=== PATIENT | female | born 1975 | race American Indian/Alaskan Native ===

== ENCOUNTER 2018-02-27 12:44 | Outpatient (CLI) | payer OTHER | END 2018-02-27 12:45 | disposition home or self-care (01) | LOC: C.EKG 12:44 → C.PAT 12:45 ==

== ENCOUNTER 2018-02-28 06:19 | Day surgery (SDC) | payer OTHER ==
[2018-02-27 08:13] VITALS: BMI 32.5
[2018-02-28] MEDS ORDERED: Midazolam 2 MG/2 ML VIAL ONE (09:23)
[2018-02-28] MEDS ORDERED: Propofol 10 mg/ml Inj (20 ML) ONE (09:24)
[2018-02-28] MEDS ORDERED: cefOXitin IV 2 gm in Dextrose 2 GM/50 ML BAG IVPB ONE (09:26)
[2018-02-28] MEDS ORDERED: Propofol 10 mg/ml 1,000 MG/100 ML VIAL ONE (09:30)
[2018-02-28] MEDS ORDERED: HYDROmorphone 0.5 mg/0.5 ml ISec IVP PRN (10:05)
[2018-02-28 11:25] VITALS: RESP 16; TEMP 98; O2SAT 98
--- NOTE | 2018-02-28 11:49 | OP ---
PROCEDURE DATE: 02/28/2018 PREOPERATIVE DIAGNOSES: Fibroid uterus, menorrhagia. POSTOPERATIVE DIAGNOSES: Fibroid uterus, menorrhagia. PROCEDURE: Hysteroscopic myomectomy, dilatation and curettage of the uterus. SURGEON: Khloe Angulo MD. FINDINGS: A 3 cm anterior submucosal myoma. ANESTHESIA: General. ESTIMATED BLOOD LOSS: Less than 1 mL COMPLICATIONS: Nil. DESCRIPTION OF PROCEDURE: After the risks, benefits, and alternatives of the planned procedures including, but not limited to, infection, hemorrhage, deep vein thrombosis, atelectasis, pneumonia, pulmonary embolism, damage to the bladder, damage to the ureter, renal insufficiency, renal failure, wound infection, wound dehiscence, incisional hernia, keloid formation, fluid overload, recurrence of fibroid, and other complications that were discussed but are not listed above had been explained to the patient and all her questions answered, informed consent was obtained. The patient was taken to the operating room in a stable condition. Under a suitable level of general anesthesia, she was prepped and draped in a sterile fashion after having been placed in a dorsal lithotomy position. Bladder was emptied by straight catheterization. Examination under anesthesia revealed bulky uterus. A weighted speculum was inserted into the vagina. The anterior lip of the cervix was grasped using a single-tooth tenaculum, endocervical curettage was performed and scant tissue was obtained. Uterus was sounded to 7 cm. Cervix was dilated to a #16 Hanks dilator. The hysteroscope was inserted into the uterus and using a MyoSure device a 3 cm anterior submucosal myoma was resected up to the level of the endometrium with scissors. At the end of the procedure, instruments were removed from the vagina. The patient was then transferred to the recovery in a stable condition. Pad, needle and instrument counts were correct x2. There were no complications. Khloe Angulo MD
[2018-02-28 12:49] VITALS: BP 116/56; PULSE 66
== END 2018-02-28 12:48 | disposition home or self-care (01) ==
LOC: C.SDS 06:19
PROVIDERS: ATTEND Obstetrics & Gynecology Reproductive Endocrinology
DX: D25.9 Leiomyoma of uterus, unspecified (principal); N92.0 Excessive and frequent menstruation with regular cycle; N72 Inflammatory disease of cervix uteri; I10 Essential (primary) hypertension
CPT/HCPCS: 36415; 58561; 86850; 86900; 88305; J0694; J1100; J1170; J2250; J2405; J2704; J3010